=== PATIENT | male | born 1980 ===

== ENCOUNTER → 2022-02-21 07:25 | Outpatient (CLI) | payer BC, SELFPAY ==
--- NOTE | ~2022-02-21 | MR_ITS ---
EXAMINATION: MR lumbar spine wo con DATE: 02/21/2022 08:12 INDICATION: Lumbar radiculopathy. Low back pain. TECHNIQUE: Magnetic resonance imaging (MRI) of the lumbar spine was performed without intravenous con trast. Sequences included sagittal T2-weighted FSE, sagittal T2-weighted FS FSE, sagittal T1-weighted FSE, and axial T2-weighted FSE. COMPARISON: None FINDINGS: Bone alignment is normal. Vertebral body heights are normal. There is mildly decreased disc height at L3-L4. The distal spinal cord signal intensity is normal. The conus medullaris is at L1. T he following disc levels are specifically discussed: L1-L2: The disc does not extend beyond the endplate margin. There is mild left facet joint osteoarthr itis. There is no neural foraminal stenosis. There is no central canal stenosis. L2-L3: The disc does not extend beyond the endplate margin. There is mild bilateral facet joint osteo arthritis. There is no neural foraminal stenosis. There is no central canal stenosis. L3-L4: The disc is bulging with superimposed right central extrusion. There is mild bilateral facet j oint osteoarthritis. There is moderate bilateral neural foraminal stenosis. There is mild central can al stenosis. L4-L5: The disc does not extend beyond the endplate margin. There is mild bilateral facet joint osteo arthritis. There is no neural foraminal stenosis. There is no central canal stenosis. L5-S1: The disc does not extend beyond the endplate margin. There is mild bilateral facet joint osteo arthritis. There is no neural foraminal stenosis. There is no central canal stenosis. IMPRESSION: 1. Moderate spondylosis at L3-L4 and mild spondylosis at other levels. Reviewed, dictated and finalized at location B.
--- NOTE | ~2022-02-21 | MR_ITS ---
EXAMINATION: MR cervical spine wo con DATE: 02/21/2022 08:10 INDICATION: Chronic neck pain. TECHNIQUE: Magnetic resonance imaging (MRI) of the cervical spine was performed without intravenous c ontrast. Sequences included sagittal T2-weighted FSE, sagittal T2-weighted FS FSE, sagittal T1-weight ed FSE, axial MERGE, and axial T2-weighted FSE. COMPARISON: None FINDINGS: There is 2 mm retrolisthesis of C3 on C4. There is mild kyphosis of lower cervical spine. V ertebral body heights are normal. There is mildly decreased disc height at C3-C4. The spinal cord sig nal intensity is normal. The following disc levels are specifically discussed: C2-C3: There is a central extrusion. There is no uncovertebral joint osteoarthritis. There is moderat e right and severe left facet joint osteoarthritis. There is mild lateral neural foraminal stenosis. There is mild central canal stenosis. C3-C4: The disc is bulging. There is mild bilateral uncovertebral joint osteoarthritis. There is mode rate bilateral facet joint osteoarthritis. There is mild bilateral neural foraminal stenosis. There i s mild central canal stenosis with ventral indentation of the spinal cord. C4-C5: The disc does not extend beyond the endplate margin. There is no uncovertebral joint osteoarth ritis. There is mild bilateral facet joint osteoarthritis. There is no neural foraminal stenosis. The re is no central canal stenosis. C5-C6: The disc is bulging and has an annular fissure. There is mild left uncovertebral joint osteoar thritis. There is mild bilateral facet joint osteoarthritis. There is no neural foraminal stenosis. T here is mild central canal stenosis. C6-C7: The disc is bulging. There is mild bilateral uncovertebral joint osteoarthritis. There is mild bilateral facet joint osteoarthritis. There is mild bilateral neural foraminal stenosis. There is mi ld central canal stenosis. C7-T1: The disc does not extend beyond the endplate margin. There is no uncovertebral joint osteoarth ritis. There is severe right and moderate left facet joint osteoarthritis. There is mild right neural foraminal stenosis. There is no central canal stenosis. IMPRESSION: 1. Mild cervical spondylosis. Reviewed, dictated and finalized at location B.
== END ==
PROVIDERS: PCP Student in an Organized Health Care Education/Training Program; Visit Provider Student in an Organized Health Care Education/Training Program
DX: M47.26 Other spondylosis with radiculopathy, lumbar region (principal); M47.22 Other spondylosis with radiculopathy, cervical region
CPT/HCPCS: 72141; 72148

== ENCOUNTER → 2023-03-25 14:07 | Outpatient (CLI) | payer OTHER, SELFPAY ==
--- NOTE | ~2023-03-25 | XR_ITS ---
EXAM: XR lumbar spine 2-3V DATE: 03/25/2023 14:43 HISTORY: acute bilateral low back pain with right sided sciatica . COMPARISON: None available. FINDINGS: Cholecystectomy clips. Hernia mesh anchors. 5 nonrib-bearing lumbar-type vertebral bodies. Pedicles intact. 5 mm anterolisthesis at L3-4. Alignment otherwise preserved. Vertebral body heights preserved. Mild disc space narrowing at L3-4. Mild facet hypertrophy and sclerosis in the lower lumba r spine. No fracture or dislocation. IMPRESSION: Grade 1 anterolisthesis and mild degenerative disc disease at L3-4. Mild lower lumbar fac et arthropathy Reviewed, dictated and finalized at location K. IMPRESSION: Grade 1 anterolisthesis and mild degenerative disc disease at L3-4. Mild lower lumbar facet arthropathy
== END ==
PROVIDERS: PCP Student in an Organized Health Care Education/Training Program; Visit Provider Student in an Organized Health Care Education/Training Program
DX: M54.41 Lumbago with sciatica, right side (principal); M51.36 Other intervertebral disc degeneration, lumbar region
CPT/HCPCS: 72100

== ENCOUNTER 2023-06-20 13:42 | Emergency (ER) | payer OTHER, SELFPAY ==
[2023-06-20 13:43] VITALS: BP 131/99; PULSE 69; RESP 16; TEMP 36.3; O2SAT 98
--- NOTE | 2023-06-20 13:58 | PC.NURSE ---
RN entered room and patient stated that he was going to leave. patient alert and oriented x4. ambulatory with steady gait.
== END 2023-06-20 14:22 | disposition left against medical advice (07) ==
LOC: ANHED 14:11
PROVIDERS: PCP Student in an Organized Health Care Education/Training Program
DX: F41.9 Anxiety disorder, unspecified (principal)
CPT/HCPCS: 99199

== ENCOUNTER 2024-07-27 12:16 | Emergency (ER) | payer SELFPAY ==
--- NOTE | ~2024-07-27 | CT_ITS ---
EXAMINATION: CT brain wo con DATE: 07/27/2024 14:21 INDICATION: Altered mental status. TECHNIQUE: Computed tomography (CT) of the head was performed without intravenous contrast. The mA wa s adjusted according to patient size. Iterative reconstruction technique was employed. The dose-lengt h product was 605.33 mGy-cm. COMPARISON: None FINDINGS: There is no intracranial hemorrhage, acute infarction, or abnormal intracranial mass lesion . The ventricles are normal in size. The orbits are normal. There is mild mucosal thickening in the e thmoid sinuses. The mastoid air cells are normal. IMPRESSION: 1. Normal brain. Reviewed, dictated and finalized at location A. IMPRESSION: 1. Normal brain.
--- NOTE | 2024-07-27 12:28 | ECG_ITS ---
Test Date: 2024-07-27 12:50:06 Measurements Intervals [place] Rate: 121 P: 30 NH: 152 QRS: 29 QRSD: 86 T: 23 QT: 305 QTc: 434 Interpretive Statements SINUS TACHYCARDIA CANNOT R/O SEPTAL INFARCT, AGE INDETERMINATE BASELINE ARTIFACT- I, II, III, AVR, AVL, AVF, V1 ABNORMAL ECG No previous ECG available for comparison Electronically Signed On 07-27-2024 13:00:03 CDT by Buzz Whitfield D.O.
[2024-07-27 12:30] VITALS: BP 140/104; PULSE 115; RESP 19; TEMP 36.6; O2SAT 98
[2024-07-27] MEDS: Please add drug allergy info to patient profile. 1 EACH XX (12:31)
[2024-07-27] MEDS: LORazepam INJ (*CRX) 2 MG/ML VIAL 1 MG IV PUSH (12:31)
[2024-07-27] MEDS: THIAMINE HCL 200 MG/2 ML VIAL 100 MG IV PUSH (12:37)
[2024-07-27] MEDS: SODIUM CHLORIDE 0.9% IV 1,000 ML 999 ML IV CONT (12:37)
[2024-07-27 12:48] LABS: Basophils Percent Auto 0.4 % (0.2-1.2); Eosinophils Percent Auto 0.6 % (0-4.4); Hematocrit 42.5 % (42.0-52.0); Hemoglobin 13.6 g/dL (14.0-18.0); Immature Granulocyte Absolute 0.01 K/mm3 (0.00-0.031); Immature Granulocyte Percent A 0.2 % (0-0.5); Lymphocytes Absolute Auto 0.85 K/mm3 (0.9-3.2); Lymphocytes Percent Auto 16.6 % (18.3-44.2); Mean Corpuscular Hemoglobin 26.6 pg (26-34); Mean Corpuscular Volume 83.2 fl (80-100); Mean Platelet Volume 9.2 fl (7.4-10.4); Monocytes Absolute Auto 0.3 K/mm3 (0.1-0.6); Monocytes Percent Auto 6.7 % (2.6-8.5); Neutrophils Absolute Auto 3.9 K/mm3 (1.3-6.7); Neutrophils Percent Auto 75.5 % (45.5-73.1); Platelet Count Result 363 k/mm3 (150-375); Red Blood Count 5.11 M/mm3 (4.6-6.20); Red Cell Distribution Width 15.1 % (11.5-14.5); White Blood Count 5.1 K/mm3 (4.5-10.0)
[2024-07-27 12:50] LABS: Glucose Point of Care 146 mg/dl (65-105)
--- NOTE | 2024-07-27 12:52 | ED.ALCOHOL ---
HPI - Alcohol General Chief Complaint: Alcohol Stated Complaint: ?ETOH withdrawal Time Seen by Provider: 07/27/24 12:28 Source: patient Mode of arrival: EMS Limitations: no limitations History of Present Illness HPI narrative: Patient is a 44 y/o male who presents to the ED via EMS with concern for alcohol withdrawal. Patient reports he drinks 1/3 fifth of bourbon per day. Also drinks beer. Last drink was on Saturday. He states he has had WD sx's before, but not this severe. C/o anxiety, shakiness, diaphoresis, muscle spasms. States he last had treatment for his alcoholism in January 2023, but is giong to an inpatient rehab program tomorrow. States he is trying to quit drinking. Denies CP, SOB, N/V, abd pain. Related Data Allergies Allergy/AdvReac Type Severity Reaction Status Date / Time No Known Allergies Allergy Verified 07/27/24 12:29 Review of Systems Review of Systems: All systems reviewed & are unremarkable except as noted in HPI. All systems reviewed & are unremarkable except as noted in HPI and below Exam Narrative: GENERAL: Appears older than stated age, anxious appearing, obese with BMI of 31.0, non-toxic, in no acute distress. HEAD: Normocephalic, atraumatic. RESPIRATORY: Airway patent, respirations nonlabored. Clear to auscultation bilaterally, no rales, rhonchi, wheezing. CARDIOVASCULAR: Tachycardic with regular rhythm without murmurs, rubs, or gallops. ABDOMINAL: Soft, no significant focal tenderness, nondistended. Normoactive BS. MUSCULOSKELETAL: Moves all extremities. No gross deformities. SKIN: Warm, dry, flushed and diaphoretic. NEURO: A&O X3. Speech clear. Cranial nerves II-XII grossly intact. No focal deficits. Moves all extremities equally. PSYCHIATRIC: Speech rapid, labile mood. Course Vital Signs Vital signs: Vital Signs Temperature 98 F 07/27/24 12:30 Pulse Rate 115 H 07/27/24 12:30 Respiratory Rate 19 07/27/24 12:30 Blood Pressure 140/104 H 07/27/24 12:30 Pulse Oximetry 98 07/27/24 12:30 Oxygen Delivery Room Air 07/27/24 12:30 Temperature 98 F 07/27/24 12:30 Pulse Rate 100 07/27/24 15:50 Respiratory Rate 17 07/27/24 15:50 Blood Pressure 150/89 H 07/27/24 15:50 Pulse Oximetry 100 07/27/24 15:50 Oxygen Delivery Room Air 07/27/24 12:30 MDM - Alcohol MDM Narrative Medical decision making narrative: Patient presented to ED with concern for ETOH WD. Hx of alcoholism. Varying reports of how much patient drinks per day. Last drink on Saturday. A call here negative. Initial CIWA 13. Denies hx of ETOH seizure. Patient tachycardic and diaphoretic. Fluids initiated. Patient given dose of Ativan and thiamine here. Basic laboratory studies are fairly unremarkable. Stable electrolytes and kidney function. EKG without concerning ischemic changes, showing sinus tachycardia. No concerning ST changes. Normal QTC. CT brain negative. Patient resting much more comfortably after fluids and a dose of Ativan. Alert oriented x4, tolerating p.o. intake. Workup and presentation consistent with mild alcohol withdrawal. CIWA downtrending already. Tachycardia resolved. Discussed discharge home with [place] verses admission to the hospital for further management of withdrawal. Patient reports he feels comfortable going home. He is scheduled for inpatient alcohol rehabilitation tomorrow. He has a ride to get there. He feels confident that he will be able to abstain from drinking tonight to be able to go to rehab tomorrow. Will prescribe Librium for home for prn use. He is in agreement with this plan. He has taken Librium before. Discussed strict return precautions. Agrees with plan. Discharged in stable condition. Vital signs stable at time of D/ C. Patient ambulatory throughout the department with a steady gait. No evidence of DTs, hallucinations, psychosis. Patient denies SI/HI. Medical Records Attestation: I reviewed the patient's medical records. Lab
[2024-07-27 12:58] LABS: INR 0.9
[2024-07-27 12:59] LABS: Partial Thromboplastin Time 27.7 Seconds (22.3-36.8)
[2024-07-27 13:00] LABS: Alanine Aminotransferase 36 U/L (6-50); Albumin Level 5.1 g/dL (3.5-5.1); Alkaline Phosphatase 89 U/L (38-126); Anion Gap 12 mmol/L (4-12); Aspartate Amino Transferase 39 U/L (17-59); Bilirubin,Total 0.3 mg/dL (0.2-1.3); Blood Urea Nitrogen 9 mg/dL (9-20); Calcium 9.6 mg/dL (8.4-10.2); Carbon Dioxide 29 mmol/L (22-30); Chloride 94 mmol/L (98-107); Estimated Glomerular Filt Rate > 60; Glucose 140 mg/dL (65-110); Lipase 246 U/L (23-300); Magnesium 1.8 mg/dL (1.6-2.3); Phosphorus 2.2 mg/dL (2.5-4.5); Potassium 3.9 mmol/L (3.4-5.0); Sodium 135 mmol/L (137-145)
[2024-07-27 13:02] LABS: Ethanol < 10 mg/dL (<10)
[2024-07-27 13:41] LABS: Add Urine Microscopic? NO; Appearance Urine Clear (Clear); Bilirubin Urine Negative (Negative); Blood Urine Negative (Negative); Color Urine Yellow (Yellow); Glucose Urine UA Negative (Negative); Ketones Urine Negative (Negative); Leukocyte Esterase Ur Negative LEU/UL (Negative); Nitrate Urine Negative (Negative); Protein Urine Negative (Negative); Specific Grav Ur 1.005 (1.001-1.035); Urobilinogen Urine 0.2 mg/dL (<2.0)
[2024-07-27 13:42] VITALS: BP 119/95; PULSE 108; RESP 17; O2SAT 99
[2024-07-27 13:55] LABS: Amphetamine Screen Urine Negative (Negative); Barbiturate Screen Urine Negative (Negative); Benzodiazepines Screen Urine Negative (Negative); Cannabinoid Screen Urine Positive (Negative); Cocaine Screen Urine Negative (Negative); Methadone Screen Urine Negative (Negative); Opiate Screen Urine Negative (Negative); Phencyclidine Screen Urine Negative (Negative)
[2024-07-27] MEDS: diazePAM (*CRX) 5 MG TABLET PO (15:40)
[2024-07-27 15:50] VITALS: BP 150/89; PULSE 100; RESP 17; O2SAT 100
--- NOTE | 2024-07-27 15:50 | PC.NURSE ---
when going into room to discharge pt. pt states, when I first got here, I was pretty messed up and you just kept asking me questions. I asked you for water and you did not get it. pt made aware that I had to ask him questions for further assessment and the provider had to see him first before I could get him anything to eat or drink. pt states, Just because I was in withdrawals, does not mean I'm not aware of what is going on! explained to pt that I am aware of that, and that when he got here I had the PA come to the room to see him. explained to him that we gave him medications to help him feel better. pt states, It's fine I'm not gonna miles you or anything I just want you to know that.
== END 2024-07-27 16:00 | disposition home or self-care (01) ==
PROVIDERS: Emergency Provider Physician Assistant; PCP Student in an Organized Health Care Education/Training Program
DX: F10.930 Alcohol use, unspecified with withdrawal, uncomplicated (principal); R00.0 Tachycardia, unspecified; Y90.0 Blood alcohol level of less than 20 mg/100 ml
CPT/HCPCS: 36415; 70450; 80053; 80307; 81003; 82948; 83690; 83735; 84100; 85025; 85610; 85730; 93005; 96361; 96374; 96375; 99284; A9270; J2060; J3411; J7030